=== PATIENT | female | born 1995 | race Caucasian/White ===

== ENCOUNTER 2023-07-21 16:25 | Emergency (ER) | payer OTHER ==
[~2023-07-21] VITALS: Ht 162.6 cm; Wt 68.0 kg
[2023-07-21 16:53] VITALS: BP 153/79; PULSE 90; RESP 20; TEMP 98; O2SAT 97
[2023-07-21] MEDS: DEXAMETHASONE 10 MG/ML VIAL IM ONE (18:37)
[2023-07-21] MEDS: diphenhydrAMINE 50 MG/ML VIAL IM ONE (18:37)
[2023-07-21] MEDS: FAMOTIDINE 20 MG TAB PO ONE (18:39)
[2023-07-21 18:46] LABS: BASOPHILS # (AUTO) 0.2 K/uL (0.00-0.22); BASOPHILS % (AUTO) 0.7 % (0.0-2.0); EOSINOPHILS # (AUTO) 0.2 K/uL (0-0.4); EOSINOPHILS % (AUTO) 0.8 % (0.0-4.0); HEMATOCRIT 38.2 % (36-48); LYMPHOCYTES # (AUTO) 3.5 K/uL (2.5-16.5); LYMPHOCYTES % (AUTO) 16.5 % (20.5-51.1); MEAN CORPUSCULAR HEMOGLOBIN 26 pg (27-31); MEAN CORPUSCULAR HGB CONC 32 g/dL (33-37); MEAN CORPUSCULAR VOLUME 81.1 fL (80-94); MONOCYTES # (AUTO) 2.8 K/uL (0.8-1.0); MONOCYTES % (AUTO) 12.9 % (1.7-9.3); NEUTROPHILS # (AUTO) 14.8 K/uL (1.8-7.7); NEUTROPHILS % (AUTO) 69.1 % (42.2-75.2); PLATELET COUNT (AUTO) 242 K/uL (140-450); RED BLOOD CELL COUNT(AUTO) 4.71 MIL/uL (4.20-5.40); RED CELL DISTRIBUTION WIDTH 15.4 % (11.6-13.7); WHITE BLOOD COUNT (AUTO) 21.4 K/uL (4.8-10.8)
[2023-07-21 19:14] LABS: ANION GAP 15.4 (8-16); CALCIUM 8.9 mg/dL (8.5-10.1); CARBON DIOXIDE 28.7 mmol/L (21-32); POTASSIUM 3.1 mmol/L (3.5-5.1)
[2023-07-21 19:21] LABS: ALANINE AMINOTRANSFERASE 13 U/L (12-78); ALBUMIN 3.8 g/dL (3.4-5.0); ALKALINE PHOSPHATASE 99 U/L (50-136); ASPARTATE AMINOTRANSFERASE 17 U/L (15-37); BILIRUBIN,DIRECT 0.1 mg/dL (0.0-0.3); LIPASE 35 U/L (16-77); TOTAL BILIRUBIN 0.4 mg/dL (0.0-1.0); TOTAL PROTEIN, SERUM 7.3 g/dL (6.4-8.2)
[2023-07-21 19:30] VITALS: O2SAT 97
[2023-07-21] MEDS: POTASSIUM CHLORIDE 20% 40 MEQ/15 ML UDC PO ONE (19:43)
[2023-07-21] MEDS ORDERED: PRON INH (20:05)
== END 2023-07-21 20:12 | disposition home or self-care (01) ==
LOC: MED 16:25
DX: L29.9 Pruritus, unspecified (principal); T78.49XA Other allergy, initial encounter; E87.6 Hypokalemia; R07.9 Chest pain, unspecified; Z88.8 Allergy status to other drugs, medicaments and biological substances; Z79.899 Other long term (current) drug therapy; X58.XXXA Exposure to other specified factors, initial encounter
CPT/HCPCS: 36415; 80048; 80076; 83690; 84484; 85025; 93005; 96372; 99284; J1100; J1200